=== PATIENT | female | born 1970 ===

== ENCOUNTER 2023-10-16 15:32 | Outpatient (CLI) | payer OTHER, BC | END 2023-10-16 23:59 | disposition short-term general hospital (02) | LOC: EMS 15:32 | DX: R07.89 Other chest pain (principal); R07.1 Chest pain on breathing; R10.11 Right upper quadrant pain; R10.32 Left lower quadrant pain; R20.2 Paresthesia of skin; V53.6XXA Passenger in pick-up truck or van injured in collision with car, pick-up truck or van in traffic accident, initial encounter; Y92.413 State road as the place of occurrence of the external cause | CPT/HCPCS: A0425; A0429 ==